=== PATIENT | female | born 1965 | race Caucasian/White ===

== ENCOUNTER → 2018-10-05 | Day surgery (SDC) | payer BC ==
--- NOTE | 2018-10-04 12:29 | Pre Op History & Physical ---
DATE OF SURGERY: 10/05/2018. CHIEF COMPLAINT: Bilateral eustachian tube dysfunction. HISTORY OF PRESENT ILLNESS: This 53-year-old female has history of eustachian tube dysfunction, but this has been longstanding. The patient has trouble when she flies. The patient has several bilateral myringotomy and tubes done in September 2016 and has been doing well. This patient usually requires equalization tube when she flies. 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 When the tubes are out when the pressure begin to build up, she also gets anxious regarding the problem. Recently, the patient has been treated with topical nasal steroid decongestant with occasional improvement of eustachian tube but it is not consistent. I have given the patient options of continued treating the condition rather than procedure. However, because the patient has an upcoming trip, which require her to be not have any problem during the flight. REVIEW OF SYSTEMS: System review showed no recent cardiovascular, respiratory, or GI problem. PAST MEDICAL HISTORY: The patient has no significant medical problem. PAST SURGICAL HISTORY: She has previous bilateral myringotomy and tubes and carpal tunnel release on the right hand. ALLERGIES: SHE HAS NO KNOWN ALLERGY TO MEDICATIONS. MEDICATIONS: She is on Amitiza and sertraline. SOCIAL HISTORY: She is a nonsmoker and a social drinker. FAMILY HISTORY: Noncontributory. PHYSICAL EXAMINATION: VITAL SIGNS: On examination, the patient's vital signs were within normal limits. HEENT: Ear exam showed normal tympanic membrane on the right side than the left with a tube in the left canal. Nasal exam showed hypertrophy of inferior turbinates. Oropharynx and oral cavity show 2+ tonsils bilaterally with no exudate or debris. She has Mallampati level II. NECK: No lymph node or thyroid palpable.. CHEST: Showed good air entry bilaterally. CARDIOVASCULAR: Showed S1, S2. No murmur noted. ASSESSMENT AND PLAN: Ms. Garcia has eustachian tube dysfunction, which is troublesome when she flies. The suggested treatment is bilateral myringotomy and tubes and other necessary procedure. The complication of procedure includes, but not limited to bleeding, infection, TM perforation, persistent drainage from the ear, hearing loss, persistent recurrence of the problem. The alternative will be continue observation, continue antibiotic therapy, topical nasal steroid therapy, systemic steroid therapy, decongestant, bilateral myringotomy tubes in the office setting. The patient and her have elected to undergo surgical procedure. I have also discussed with the patient and her regarding longer-term tympanostomy tubes such as the T-tube, but because of the small lumen and potential of TM perforation, they have elected to continue with the Arana grommet tube. MD PRISCILA Lam/ESTEBAN /[id number] cc: Dr. Negro
[~2018-10-05] MED LIST: ASPIRIN81 MG; DEXAMETHASONE SOD PHOS INJ 4 MG/ML VIAL ONE; FENTANYL CITRATE/PF 100MCG/2 ML INJ ONE; LIDOCAINE HCL 2% LOCAL INJ 5 ML SDV VIAL INJ ONE; MAGNESIUM27 MG; MIDAZOLAM HCL 2 MG/2 ML VIAL ONE; OMEGA 3 1,0001 EACH; ONDANSETRON HCL INJ 2MG/ML 2ML 2 MG/ML VIAL ONE; PLAQUENIL200 MG PO; PROPOFOL IV EMULSION 10 MG/ML 20 ML VIAL ONE; SEVOFLURANE INHAL SOLN 250 ML PEN BTL ONE; ZOLOFT50 MG PO; [UNRECOGNIZED DRUG - OTHER]
[2018-10-05 12:05] VITALS: BP 98/68
--- NOTE | 2018-10-05 13:40 | Operative Report ---
DATE OF PROCEDURE: 10/05/2018 SURGEON: Anthony Dee MD CHIEF COMPLAINT: Eustachian tube dysfunction. POSTOPERATIVE DIAGNOSIS: Eustachian tube dysfunction. OPERATIVE PROCEDURE: Bilateral myringotomy and tubes. ANESTHESIA: Anesthesiology group. INDICATIONS: This 53-year-old female has history of eustachian tube problem. The patient has difficulty whenever she flies. 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 On examination, she was noted to have normal TM on both sides, but have difficulty doing Valsalva. It was decided that bilateral myringotomy tubes and other necessary procedure will be beneficial for her. DESCRIPTION OF PROCEDURE: The patient was taken to the operating room, put under general anesthesia, LMA airway created. The right ear was examined. The ear canal was debrided. The myringotomy was done in the anterior superior quadrant. No effusion was noted in middle ear cleft. Arana grommet tube was inserted. Similar procedure was carried on the left side. PE tube was noted sitting in the ear canal. This was removed. The TM was noted to be intact and myringotomy was done in anterior superior quadrant. No effusion was noted in middle ear cleft. Arana grommet tube was inserted. The patient tolerated the above procedure well with no blood loss. She was able to be transferred to recovery room in stable condition. Anthony Dee MD DKH/MODL /[id number]
== END | disposition home or self-care (01) ==
LOC: OR 08:01
PROVIDERS: ATTEND Otolaryngology Otolaryngology/Facial Plastic Surgery
DX: H69.80 Other specified disorders of Eustachian tube, unspecified ear (principal); H65.20 Chronic serous otitis media, unspecified ear; J34.3 Hypertrophy of nasal turbinates; F41.9 Anxiety disorder, unspecified; Z91.040 Latex allergy status; Z79.82 Long term (current) use of aspirin
CPT/HCPCS: 69436; 81025; 93005; J1100; J2001; J2250; J2405; J2704; J3010